=== PATIENT | male | born 1960 | race Caucasian/White ===

== ENCOUNTER 2024-05-14 08:52 | Outpatient (REF) | payer MEDICAID, SELFPAY ==
--- OUTSIDE RECORDS SUMMARY | 2024-05-14 08:59 | XMS_ITS | Continuity of Care Document ---
Author Organization [facility] Address [address] [place] [address] Phone Care Team Providers Care Wound Nurse Name Role Phone Nurse, [facility] Unavailable Unavailable Allergies, Adverse Reactions, Alerts Substance Reaction Status Criticality aspirin difficulty breathing, swallowing Active No Information ibuprofen difficulty breathing Active No Info rmation Medications Medication Instructions Dosage Effective Dates (start - stop) Status Comments Flomax 0.4 mg capsule take 1 capsule (0. 4MG) by oral route every day 1/2 hour following the same meal each day 0.4 MG - Active Procedures Procedure Date OFFICE/OUTPATIENT VISIT, EST Co-Visit/ Screen - Prevention/Early In tervention OFFICE/OUTPATIENT VISIT, EST Pos clin depres scrn f/u doc OFFICE/OUTPATIENT VISIT, EST URINALYSIS NONAUTO W/O SCOPE PREV VISIT, NEW, AGE 40-64 Advance Directives Directive Yes / No Effective Date File Name No Information Encounters Encounter Description Practice Location Reason(s) For Visit Diagnoses Date Provider Providers Copied on Encounter [facility], [address], [place], [place], [id number], [place] tel:[phone] [facility] No Information Jul- 8 Nurse [facility]. [address] [place], [address], [place]. tel:[phone] OFFICE/OUTPA TIENT VISIT, [facility], [address], [place], [place], [id number], [place] tel:[phone] [facility] follow up on lab test(s) (chief complaint) NocturiaHyper lipidemia, unspecified hyperlipidemi a type 7 No Information [facility], [address], [place], [place], [id number], [place] tel:[phone] [facility] Proteinuria, unspecified type 7 No Information [facility], [address], [place], [place], [id number], [place] tel:[phone] [facility] Major depression, chronic 7 No Information OFFICE/OUTPA TIENT VISIT, [facility], [address], [place], [place], [id number], [place] tel:[phone] [facility] colonoscopy referral (chief complaint) Body mass index (BMI) 26.0-26.9, adultColon cancer screeningDepr ession, unspecified depression typePhysical exam 7 No Information [facility], [address], [place], [place], [address], [place] tel:[phone] [facility] Hyperglycemia 6 No Information OFFICE/OUTPA TIENT VISIT, [facility], [address], [place], [place], [id number], [place] tel:[phone] [facility] Gastroenteriti s (chief complaint) Anal or rectal painPhysical exam 6 No Information PREV VISIT, NEW, AGE 40-64 [facility], [address], [place], [place], [id number], [place] tel:[phone] [facility] prostatitis (chief complaint) No Information 2 No Information Family History Family Member Type Diagnosis Age At Onset Mother Problem (finding) asthma Payers Payer name Insurance type Covered green party ID Timur dubon(s) [facility] Medicaid [id number] Social History Type Description Quantity Date Captured Comments Alcohol Use Details Unknown Caffeine Use Details Unknown Tobacco Use Status Smoking Status No Information Sex Male Chief Complaint And Reason For Visit No Information Reason For Referral Reason For Referral No Information Plan Of Treatment Date Type Action Status Goal Depression scree zachary. Due on due Goal HIV Routine Screening due Goal Tdap. Due on due Goal Zoster vaccine ( ). Due on due Goal Influenza vaccine. Due on due Goal Dental exam. Due on 018 due Goal Lipid panel. Due on 022 due Goal FOBT. Due on due Goal Colonoscopy. Due on 027 due Goal Td vaccine. Due on 18 due Goal FOBT. Due on due Goal Influenza vaccine. Due on due Goal Td vaccine. Due on 17 due Goal Influenza vaccine. Due on due Goal Colonoscopy. Due on 017 due Goal FOBT. Due on due Goal Td vaccine. Due on 17 due Goal Influenza vaccine. Due on due Goal Td vaccine. Due on 17 due Goal FOBT. Due on due Goal Influenza vaccine. Due on due Goal Td vaccine. Due on 17 due Goal FOBT. Due on due Goal Dietary manageme nt education, guidance, and counseling completed Referral Ordered: Gastroenterology Appointment date/timeframe: 06/15/2015 ordered Referral Ordered: COLONOSCOPY AND BIOPSY ordered Future Order: Lab Order CBC with Diff ([id number]), Ordered on: Ordered Future Order: Lab Order LIPID PA CLARE ([id number]), Ordered on: Ordered Future Order: Lab Order PSA ([id number]), O rdered on: Ordered Future Order: Lab Order TSH ([id number]), O rdered on: Ordered Future Order: Lab Order Comp Met a Panel ([id number]), Ordered on: Ordered History Of Present Illness Encounter Date Complaint History Of Prese nt Illness follow up on lab test(s) The sym ptoms are reported as being mild. The symptoms occur daily. He states the symptoms are chronic. Pt here today to review recent labs, significant for LDL 132. Repeat U/A WNL. Had colonoscopy on 01/31. He is very relieved that he does not have colon cancer. To f/u for repeat colonoscopy in 5 years.Today he is c/o dribbling and some night time urination. Wakes about 3-4 times/night to urinate. He has brought prescription for flomax with him, from 2011. States that this did help when he had these symptoms in the past. PSA was 0.6 on recent labs. Denies any FMHx of prostate CA.-Pt refused influenza vaccination colonoscopy referral The symptom s are reported as being moderate. The symptoms occur daily. The location is abdomen. He states the symptoms are chronic. Pt here today for colonoscopy referral. He was last seen June of 2015. Pt states that he has pain in his abdomen that comes and goes, pain is sharp and burning, located in lower abdomen most of the time. He is very concerned that he may have colon cancer, states that he would like colonoscopy right away. Pt is standing during the apt., pacing, appears anxious. PHQ score 23 today. Gastroenteritis (comments) 54 y/ o man here today for follow up after emergency department visit. Was dx with gastroenteritis and given prescription for zofran, which he has not been taking. He states that he has not had any vomiting, only diarrhea. Still has mild diarrhea, which has improved. Today he is primarily concerned with pain in his rectum for about a year. He states it is not necessarily with a bowel movement, but occurs sporadically, and also when he is about to have a bowel movement. Also feels pressure and has difficulty passing stool. Denies blood in in stool, vomiting, or fever/chills. Gastroenteritis The severity of the problem is mild. The problem is improving. The symptoms are constant. Functional Status Date Functional Assessmen t No Information Instructions Date Instruction Additional Infor sunny Discussed healthy li festyle changes, such as avoiding fried food and foods high in saturated fats, decreasing red meat consumption, as well as increasing fruit and vegetables, and getting regular exercise. He does not smoke, and denies any known FMHx of CAD, so would like to try 6 mo of healhty lifestyle changes prior to starting medication. Related to Hyperlipidemia, unspecified hyperlipidemia type Initiate flomax as d irected for frequent urination/nocturia. The risks, benefits and side effects of the medication were discussed with the patient. He refused rectal exam today. Follow up 1 month for re-evaluation, or sooner should he experience any adverse effects from medication. Related to Nocturia Routine labs ordered , pt to f/u in 2-3 weeks to review. Related to Physical exam Screening colonoscop y ordered, informed patient that it is typically a one month wait for colonoscopies. Related to Colon cancer screening Pt met with after apt. He was given information for crisis walk in center, a safety plan was made, and he will make apt. with for follow up counseling/therapy. He refused any medication for depression/anxiety. He does admit to suicidal ideation but does not have a plan or intent for suicide. Related to Depression, unspecified depression type Dietary management e ducation, guidance, and counseling Related to Body mass index (BMI) 26.0-26.9, adult Routine labs ordered . Patient will follow up in 2 weeks to review. Related to Physical exam Rectal exam did not reveal any hemorrhoids or obvious cause of pain. Will refer to GI for evaluation and colonoscopy. Related to Anal or rectal pain Assessments Type Assessment Date No Information Patient Care Teams Name Effective Dates (start - stop) Status Members No Information
== END 2024-05-14 08:53 | disposition home or self-care (01) ==
LOC: HO.WFDLDS 08:52
PROVIDERS: Visit Provider Internal Medicine
DX: R73.03 Prediabetes (principal)
CPT/HCPCS: 36415